=== PATIENT | male | born 1980 | race Caucasian/White ===

== ENCOUNTER 2017-07-14 09:41 | Emergency (ER) | payer OTHER ==
[~2017-07-14 09:41] MED LIST: Z.0.NO CURRENT MEDS
[2017-07-14 09:43] VITALS: BP 172/111; PULSE 87; RESP 20; TEMP 98.3; O2SAT 99
[2017-07-14 10:37] LABS: BILIRUBIN, URINE NEG (NEG); BLOOD, URINE SMALL (NEG); GLUCOSE,URINE NEG (NEG); KETONE, URINE NEG (NEG); NITRITE,URINE NEG (NEG); URINE LEUKOCYTE ESTERASE NEG (NEG)
[2017-07-14 10:38] LABS: URINE COLOR YELLOW (YELLW/STRAW)
[2017-07-14 10:41] LABS: SQUAMOUS EPITHELIAL CELL URINE 0-5 /hpf (0-5); WBC, URINE 0-2 /hpf (0-5)
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
[2017-07-14 12:13] LABS: AUTOMATED NEUTROPHIL # 5.8 TH/MM3 (1.8-7.7); BASOPHIL % 0.3 % (0.0-2.0); EOSINOPHIL # 0.1 TH/MM3 (0-0.4); EOSINOPHIL % 0.9 % (0.0-4.0); HEMATOCRIT 45.6 % (39.0-51.0); HEMOGLOBIN 14.2 GM/DL (13.0-17.0); LYMPH % 19.9 % (9.0-44.0); LYMPHOCYTE # 1.6 TH/MM3 (1.0-4.8); MEAN CELL VOLUME 80.1 FL (80.0-100.0); MEAN CORPUSCULAR HGB CONC 31.2 % (32.0-36.0); MEAN PLATELET VOLUME 8.6 FL (7.0-11.0); MONO % 7.5 % (0.0-8.0); MONOCYTE # 0.6 TH/MM3 (0-0.9); NEUT % 71.4 % (16.0-70.0); PLATELET COUNT 270 TH/MM3 (150-450); RED CELL DISTRIBUTION WIDTH 13.4 % (11.6-17.2); WHITE BLOOD COUNT 8.1 TH/MM3 (4.0-11.0)
[2017-07-14 12:29] LABS: BICARBONATE 27.7 MEQ/L (21.0-32.0)
[2017-07-14 12:33] LABS: CREATININE 0.97 MG/DL (0.60-1.30)
[2017-07-14] MEDS ORDERED: IOHEXOL 350 MG/ML 10 ML VIAL (for RAD DIAG) IVCONTRAST ONE (13:04)
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
[2017-07-14] MEDS ORDERED: LISI-515 PO (13:52)
[2017-07-14 14:06] VITALS: BP 155/95
== END 2017-07-14 14:15 | disposition home or self-care (01) ==
LOC: PHED 09:41
DX: N28.89 Other specified disorders of kidney and ureter (principal)
CPT/HCPCS: 74177; 80048; 81001; 85025; 99284; Q9967

== ENCOUNTER 2017-07-21 08:18 | Day surgery (SDC) | payer OTHER ==
[~2017-07-21] VITALS: Ht 188 cm; Wt 127.0 kg
[2017-07-21] VITALS (9 sets, daily range): BP systolic 94–147; BP diastolic 67–102; PULSE 60–105; RESP 20; TEMP 97.7–98.2; O2SAT 93–98
[~2017-07-21 08:18] MED LIST changes: +LISI-515 PO; -Z.0.NO CURRENT MEDS
[2017-07-21] MEDS ORDERED: GELATIN 12 MM/7 MM FOAM ONE (08:19)
[2017-07-21] MEDS ORDERED: CYCL10TA PO (08:50)
[2017-07-21] MEDS ORDERED: SODIUM CHLORIDE 2 ML FLUSH BID IV FLUSH SCH (09:00)
[2017-07-21] MEDS ORDERED: SODIUM CHLOR 0.9% 1000 ML IV SCH (09:00)
[2017-07-21] MEDS ORDERED: SODIUM CHLORIDE 2 ML FLUSH PRN IV FLUSH (09:00)
[2017-07-21 09:21] LABS: INTERNATIONAL NORMALIZED RATIO 1.1 RATIO; PROTHROMBIN TIME - PATIENT 10.7 SEC (9.8-11.6)
[2017-07-21] MEDS ORDERED: LIDOCAINE HCL 1% 20 ML VIAL ONE (10:28)
[2017-07-21] MEDS ORDERED: MIDAZOLAM HCL 2 MG/2 ML VIAL ONE ×2 (11:01→11:27)
[2017-07-21] MEDS ORDERED: THROMBIN (TOPICAL) 5,000 UNIT VIAL ONE (11:28)
--- NOTE | 2017-07-21 11:44 | PD.RAD ---
Post CT Procedure Prog Note Pre Procedure Diagnosis: (1) Left renal mass Post Procedure Diagnosis: (1) Left renal mass Procedure Date: Jul 21, 2017 Supervising Radiologist: Kenyon Singh JR Anesthesia: Conscious Sedation Plan of Activity Patient to Unit: ROPU Patient Condition: Good See PACS Report for procedural detail/treatment Biopsy Imaging Guidance: CT Side: Left Biopsy Procedure: Kidney Specimen: Core Biopsy Findings: 3 core samples of large left upper pole renal mass performed. Good samples noted. Gelfoam/thrombin utilized. Post CT images show no significant hemorrhage. Jr. Francisco,Kenyon Yu MD Jul 21, 2017 11:44
[2017-07-21 13:07] LABS: AUTOMATED NEUTROPHIL # 5.6 TH/MM3 (1.8-7.7); BASOPHIL % 0.2 % (0.0-2.0); EOSINOPHIL # 0.2 TH/MM3 (0-0.4); EOSINOPHIL % 1.9 % (0.0-4.0); HEMATOCRIT 41.1 % (39.0-51.0); HEMOGLOBIN 14.1 GM/DL (13.0-17.0); LYMPH % 18.5 % (9.0-44.0); LYMPHOCYTE # 1.5 TH/MM3 (1.0-4.8); MEAN CELL VOLUME 79.5 FL (80.0-100.0); MEAN CORPUSCULAR HEMOGLOBIN 27.3 PG (27.0-34.0); MEAN CORPUSCULAR HGB CONC 34.4 % (32.0-36.0); MONO % 8.2 % (0.0-8.0); MONOCYTE # 0.6 TH/MM3 (0-0.9); NEUT % 71.2 % (16.0-70.0); PLATELET COUNT 236 TH/MM3 (150-450); RED BLOOD COUNT 5.17 MIL/MM3 (4.50-5.90); RED CELL DISTRIBUTION WIDTH 14.4 % (11.6-17.2); WHITE BLOOD COUNT 7.9 TH/MM3 (4.0-11.0)
[2017-07-21 14:09] LABS: AUTOMATED NEUTROPHIL # 6.4 TH/MM3 (1.8-7.7); BASOPHIL % 0.4 % (0.0-2.0); EOSINOPHIL # 0.1 TH/MM3 (0-0.4); EOSINOPHIL % 1.7 % (0.0-4.0); HEMOGLOBIN 13.9 GM/DL (13.0-17.0); LYMPH % 17.4 % (9.0-44.0); LYMPHOCYTE # 1.5 TH/MM3 (1.0-4.8); MEAN CELL VOLUME 79.8 FL (80.0-100.0); MEAN CORPUSCULAR HEMOGLOBIN 26.4 PG (27.0-34.0); MEAN PLATELET VOLUME 8.3 FL (7.0-11.0); MONO % 6.3 % (0.0-8.0); MONOCYTE # 0.5 TH/MM3 (0-0.9); NEUT % 74.2 % (16.0-70.0); PLATELET COUNT 234 TH/MM3 (150-450); RED BLOOD COUNT 5.26 MIL/MM3 (4.50-5.90); RED CELL DISTRIBUTION WIDTH 14.2 % (11.6-17.2); WHITE BLOOD COUNT 8.6 TH/MM3 (4.0-11.0)
--- NOTE | 2017-07-21 14:16 | RADRPT ---
EXAM DATE/TIME: 07/21/2017 11:16 [facility] COMPARISON: No previous studies available for comparison. INDICATIONS : Left renal mass. SEDATION TIME: 20 minutes BIOPSY SITE: Left kidney mass MEDICATION(S): 1.) 6 mg midazolam (Versed) IV 2.) 300 mcg fentanyl (Sublimaze) IV DEVICE(S): 1.) 17 gauge coaxial 15cm 2.) 18 gauge Biopsy gun 20cm MEDICAL HISTORY : None. SURGICAL HISTORY : None. ENCOUNTER: Initial ACUITY: 1 day PAIN SCORE: 0/10 LOCATION: Left flank A total of three core specimen(s) were obtained and sent to the laboratory for pathologic evaluation. PROCEDURE: 1. CT guided renal biopsy. 2. Conscious sedation with continuous EKG and oximetry monitoring. Prior to the procedure informed consent was obtained. Any appropriate prior imaging studies were rev iewed. Using automated exposure control and adjustment of the mA and/or kV according to patient size, radiat ion dose was kept as low as reasonably achievable to obtain optimal diagnostic quality images. DICOM format image data is available electronically for review and comparison. The site was prepped in a sterile fashion. Full sterile technique was used, including cap, mask, juan francisco rile gloves and gown and a large sterile sheet. Hand hygiene and 2% chlorhexidine and/or betadine/al cohol prep was utilized per protocol for cutaneous antisepsis. The skin and subcutaneous tissues wer e infiltrated with local anesthetic solution. With CT guidance the large left upper pole renal mass was localized. Biopsy was performed using the p rescribed needle as above. Adequate hemostasis was obtained utilizing Gelfoam and thrombin. Follow-up CT scan reveals no hemorrhage. The patient tolerated the procedure well and there were no complications. The patient was returned to the Radiology Outpatient Unit in stable condition. CONCLUSION: Uncomplicated CT guided core biopsy of a left upper pole renal mass. Kenyon Singh Jr., MD on July 21, 2017 at 14:12 Board Certified Radiologist. This report was verified electronically.
== END 2017-07-21 16:05 | disposition home or self-care (01) ==
LOC: HRAD 08:18 → HRIP 08:22 → HRAD 16:05
PROVIDERS: ATTEND Urology
DX: C64.9 Malignant neoplasm of unspecified kidney, except renal pelvis (principal); I10 Essential (primary) hypertension
CPT/HCPCS: 50200; 77012; 85025; 85610; 85730; 88305; J2250; J3010; J7030; 88307

== ENCOUNTER 2017-08-12 06:16 | Inpatient (IN) | payer OTHER ==
[~2017-08-12] VITALS: Ht 188 cm; Wt 128.1 kg
[~2017-08-12 06:16] MED LIST changes: -LISI-515 PO; +LISI10TA3 PO; +TRAM50 PO
[2017-08-12] MEDS ORDERED: INSULIN HUMAN REGULAR 1,000 UNITS/10 ML VIAL SQ PRN (07:00)
[2017-08-12] MEDS ORDERED: SODIUM CHLORID 0.9% 500 ML IV PRN (07:00)
[2017-08-12] MEDS ORDERED: METOPROLOL TARTRATE 25 MG TAB PO PRN (07:00)
[2017-08-12] MEDS ORDERED: POVIDONE IODINE 5% (ANTISEPSIS KIT) 4 APPLICATIONS EACH NARE PRN (07:00)
[2017-08-12] MEDS ORDERED: LACTATED RINGER'S 1000 ML IV PRN (07:00)
[2017-08-12] MEDS ORDERED: ceFAZolin 2 GM PREMIX 50 ML IV SCH (07:00)
[2017-08-12] MEDS ORDERED: CHLORHEXIDINE GLUCONATE 2 % 1 PACK (2 CLOTHS) TOPICAL PRN (07:00)
[2017-08-12] MEDS ORDERED: MORPHINE SULFATE 4 MG/ML INJ ONE (07:01)
[2017-08-12] MEDS ORDERED: ACETAMINOPHEN 1000 MG/100 ML 100 ML IV ONE (07:01)
[2017-08-12] MEDS ORDERED: LORazepam 2 MG/ML VIAL ONE (07:51)
[2017-08-12] MEDS ORDERED: MIDAZOLAM HCL 2 MG/2 ML VIAL ONE (07:54)
[2017-08-12] MEDS ORDERED: fentaNYL CITRATE 250 MCG/5 ML AMP ONE (10:16)
[2017-08-12] MEDS ORDERED: SODIUM CHLORIDE 0.9% 20 ML VIAL IV ONE (12:00)
[2017-08-12] MEDS ORDERED: PHENYLEPHRINE HCL 10 MG/ML VIAL IV ONE (12:00)
[2017-08-12] MEDS ORDERED: VECURONIUM BROMIDE 20 MG VIAL IV ONE (12:00)
[2017-08-12] MEDS ORDERED: ePHEDrine/NS 25 MG/5 ML SYRINGE IV ONE (12:00)
[2017-08-12] MEDS ORDERED: LACTATED RINGER'S 1000 ML INJ 1,000 ML IV ONE (12:00)
[2017-08-12] MEDS ORDERED: ROCURONIUM INJ 50 MG/5 ML SYRINGE IV PUSH ONE (12:00)
[2017-08-12] MEDS ORDERED: ESMOLOL HCL 100 MG/10 ML VIAL IV ONE (12:00)
[2017-08-12] MEDS ORDERED: ONDANSETRON HCL 4 MG/2 ML VIAL IV ONE (12:00)
[2017-08-12] MEDS ORDERED: DEXAMETHASONE SOD PHOS 4 MG/ML VIAL IV ONE (12:00)
[2017-08-12] MEDS ORDERED: STERILE WATER FOR INJECTION 20 ML VIAL IV ONE (12:00)
[2017-08-12] MEDS ORDERED: PROPOFOL 200 MG/20 ML AMP IV ONE (12:00)
[2017-08-12] MEDS ORDERED: ceFAZolin INJ 1,000 MG VIAL IV ONE ×2 (12:00→12:01)
[2017-08-12] MEDS ORDERED: LIDOCAINE HCL 1% PF 5 ML SYRINGE OTHER ONE (12:00)
[2017-08-12] MEDS ORDERED: PHENYLEPH/NS 1000 MCG/10 ML SYR IV ONE (12:00)
[2017-08-12] MEDS ORDERED: SUGAMMADEX SODIUM 200 MG/2 ML VIAL IV PUSH ONE (14:20)
--- NOTE | 2017-08-12 14:51 | PD.OP ---
Operative Report Date of Surgery: Aug 12, 2017 Preoperative Diagnosis: (1) Renal cell carcinoma of left kidney Postoperative Diagnosis: (1) Renal cell carcinoma of left kidney Procedure: Robot-assisted laparoscopic left radical nephrectomy Anesthesia: General Surgeon: Mauro Steward Staff Developer(s): Da Prescott Operation and Findings: Indication for procedure: Case of a pleasant 36-year-old gentleman with an 8 cm left renal mass biopsy proven to be renal cell carcinoma who presents today to undergo a robot-assisted laparoscopic left radical nephrectomy. Operative procedure in detail: Patient was brought to the operating room suite and placed supine on the OR table. He was then placed under general anesthesia. He was then repositioned in the right lateral recumbent position and the table flexed to separate the bony pelvis from the thorax. He was then held in this position utilizing a beanbag. All pressure points were adequately padded. He was then prepped and draped in normal sterile fashion. After the timeout was taken, I proceeded with creation of a pneumoperitoneum utilizing the Veress needle in standard fashion. The abdomen was inflated to 15 mmHg pressure. The camera port was then placed in the midline utilizing the visual obturator. The 3 robotic arm ports were then placed under direct vision and the cosmetic sales assistant port placed inferior to the camera port in the midline again under direct vision. With all ports in place the robot was docked. At this point in time I repositioned myself over at the da María Elena console and Dr. Prescott remained at the bedside to senior it assistant. I next proceeded with mobilization of the left colon. The splenic flexure was freed and the colon mobilized in a medial direction to expose the retroperitoneum. I then proceeded to mobilize the inferior aspect of the left kidney down to the psoas muscle and the ureter was identified and tracked upwards towards the hilum. The hilar vessels were identified and subsequently divided and ligated with the surgical stapling device. I then proceeded with further mobilization of the kidney using sharp and blunt dissection. Particular care was taken at the level of the spleen to prevent any inadvertent injury to the spleen or to the tail of the pancreas. The left adrenal gland was identified and very medial location and since this tumor was lateral decision was made to leave the adrenal glands intact. After the kidney was fully mobilized and was placed in a Endo Catch specimen bag. The pneumoperitoneum was dropped down to 5 mmHg and careful inspection was made for active bleeding. No bleeding was noted. Total blood loss was 100 cc. The robot was then undocked and I repositioned myself at the bedside after I re-scrubbed. The camera port and cosmetic sales assistant port were connected by cutting with a 15 blade in between the port sites to create a single incision measuring approximately 6 cm in length. The incision was extended down to the underlying fascia which was sharply opened up. The specimen was then removed in the Endo Catch specimen bag and sent off to pathology. This midline incision was then closed utilizing #1 PDS for the deep fascia. Subcutaneous tissue was reapproximated with 4-0 Vicryl and the skin edges reapproximated in subcuticular fashion utilizing 4-0 undyed Vicryl. The remaining 3 robotic arm port sites were closed in subcuticular fashion in similar fashion. Sterile dressings were placed at all wound sites. The patient tolerated the procedure without complications and was transferred to the PACU in satisfactory condition. Mauro Steward MD Aug 12, 2017 14:51
[2017-08-12] MEDS ORDERED: KETOROLAC TROMETHAMINE 60 MG/2 ML (IM) VIAL IM PRN (15:15)
[2017-08-12] MEDS ORDERED: SODIUM CHLORIDE 0.9% FLUSH 10 ML FLUSH IV FLUSH PRN (15:15)
[2017-08-12] MEDS ORDERED: HYDROmorphone HCL PF 2 MG/ML VIAL IV PUSH PRN ×2 (15:15→18:00)
[2017-08-12] MEDS: LACTATED RINGER'S 1000 ML INJ 1,000 ML IV SCH ×2 (15:50→22:53)
[2017-08-12] MEDS ORDERED: DO NOT ADM ANY ANTICOAGULANT DRUGS PRN (16:00)
[2017-08-12] MEDS ORDERED: Post-op Orders (for Pharmacy) XX ONE (16:00)
[2017-08-12] MEDS ORDERED: *morphine SULFATE 4 MG/ML PERIprocedure ONLY ONE ×2 (16:08→16:43)
[2017-08-12] MEDS: HYDROmorphone HCL PF 2 MG/ML VIAL IV PUSH PRN ×3 (16:14→17:59)
[2017-08-12] MEDS ORDERED: HYDROmorphone HCL PCA 6 MG/30 ML IV ONE (16:52)
[2017-08-12] MEDS: HYDROmorphone HCL PCA 6 MG/30 ML IV SCH (17:02)
[2017-08-12] MEDS ORDERED: HYDROmorphone HCL PF 2 MG/ML VIAL IV PUSH ONE (18:00)
[2017-08-12] MEDS ORDERED: SODIUM CHLORID 0.9% 500 ML INJ 500 ML IV ONE (18:00)
[2017-08-12] MEDS ORDERED: NALOXONE HCL 0.4 MG/ML AMP IV PUSH PRN (19:00)
[2017-08-12 20:31] VITALS: BP 131/68; PULSE 104; RESP 17; TEMP 97.3; O2SAT 97
[2017-08-12] MEDS: PCA - TOTAL MG DILAUDID DELIVERED PER SHIFT SCH (22:00)
[2017-08-12] MEDS: ceFAZolin 2 GM PREMIX 50 ML IV SCH (22:52)
[2017-08-12] MEDS: SODIUM CHLORIDE 0.9% FLUSH 10 ML FLUSH IV FLUSH SCH (22:56)
[2017-08-13 00:23] VITALS: BP 110/70; PULSE 92; RESP 18; TEMP 97.4; O2SAT 96
[2017-08-13] MEDS: HYDROmorphone HCL PCA 6 MG/30 ML IV SCH ×3 (03:55→22:53)
[2017-08-13 05:17] VITALS: BP 103/65; PULSE 90; RESP 18; TEMP 97.9; O2SAT 97
[2017-08-13] MEDS: PCA - TOTAL MG DILAUDID DELIVERED PER SHIFT SCH ×3 (06:00→22:00)
[2017-08-13] MEDS: ceFAZolin 2 GM PREMIX 50 ML IV SCH ×2 (06:04→13:35)
[2017-08-13] MEDS: LACTATED RINGER'S 1000 ML INJ 1,000 ML IV SCH ×3 (06:13→22:00)
[2017-08-13] MEDS: ONDANSETRON HCL 4 MG/2 ML VIAL IV PUSH PRN ×3 (07:10→21:58)
[2017-08-13 08:00] VITALS: BP 111/70; PULSE 81; RESP 18; TEMP 97.6; O2SAT 94
[2017-08-13] MEDS ORDERED: traMADol HCL 50 MG TAB PO PRN (08:00)
[2017-08-13] MEDS: SODIUM CHLORIDE 0.9% FLUSH 10 ML FLUSH IV FLUSH SCH ×2 (09:00→21:58)
--- NOTE | 2017-08-13 09:41 | EKG ---
Date Performed: 08/12/2017 Time Performed: 07:18:50 PTAGE: 36 years EKG: Sinus rhythm INDETERMINATE AXIS INFERIOR MYOCARDIAL INFARCTION , PROBABLY OLD ABNORMAL ECG PREVIOUS TRACING : 08/19/2012 21.30 Since prior tracing, sinus rhythm has replaced sinus rhythm with bigeminal PVCs. Possible inferior infarct pattern is new. DOCTOR: Vicente Blackman Interpretating Date/Time 08/13/2017 09:42:33
[2017-08-13] MEDS: LISINOPRIL 10 MG TAB PO SCH (09:53)
[2017-08-13 10:19] LABS: HEMATOCRIT 37.4 % (39.0-51.0); HEMOGLOBIN 12.9 GM/DL (13.0-17.0)
[2017-08-13 10:51] LABS: BICARBONATE 29.1 MEQ/L (21.0-32.0); CALCIUM 8.3 MG/DL (8.5-10.1); CREATININE 1.6 MG/DL (0.60-1.30)
[2017-08-13 12:00] VITALS: BP 115/71; PULSE 98; RESP 18; TEMP 98.8; O2SAT 92
--- NOTE | 2017-08-13 12:00 | HHI.PR ---
Subjective Patient symptoms today Postoperative day #1 Pain management with [employer] Voiding well Has been out of bed Tolerating regular diet Objective Vital Signs Vital Signs Date Time Temp Pulse Resp B/P (MAP) Pulse Ox O2 Delivery O2 Flow Rate FiO2 08/13/17 08:00 97.6 81 18 111/70 (84) 94 08/13/17 06:00 18 08/13/17 05:17 97.9 90 18 103/65 (78) 97 08/13/17 03:55 18 08/13/17 00:23 97.4 92 18 110/70 (83) 96 08/12/17 22:00 18 08/12/17 20:31 97.3 104 17 131/68 (89) 97 08/12/17 18:15 98.6 112 13 120/64 (82) 94 Nasal Cannula 2 08/12/17 18:00 112 13 129/67 (87) 96 Nasal Cannula 2 08/12/17 17:45 115 13 103/70 (81) 98 Nasal Cannula 3 08/12/17 17:30 113 13 108/69 (82) 96 Nasal Cannula 3 08/12/17 17:15 111 13 104/70 (81) 94 Nasal Cannula 3 08/12/17 17:02 19 08/12/17 17:00 113 14 121/85 (97) 96 Nasal Cannula 3 08/12/17 16:45 117 13 131/92 (105) 98 Nasal Cannula 4 08/12/17 16:30 118 13 113/74 (87) 95 Nasal Cannula 4 08/12/17 16:15 120 14 123/83 (96) 96 Nasal Cannula 4 08/12/17 16:00 116 21 135/83 (100) 97 Nasal Cannula 4 08/12/17 15:45 113 22 130/78 (95) 96 Simple Mask 5 123/67 (85) 08/12/17 15:30 105 24 123/75 (91) 94 Simple Mask 6 127/73 (91) 08/12/17 15:19 98.3 116 16 109/73 (85) 91 Simple Mask 6 Intake & Output 08/13/17 08/13/17 07:00 19:00 Intake Total 1784 ml Output Total 800 ml Balance 984 ml IV Total 1784 ml Output Urine Total 800 ml Result Diagram: 2/14/18 0924 2/14/18 0924 Other Results Abdomen soft, nondistended, nontender Wound sites clean and dry Extremities well perfused, nontender Medications and IVs Current Medications Medications (Trade) Dose Ordered Sig/Anisa Route Start Time Stop Time Status Last Admin Lactated Ringer's 1,000 ml @ 30 mls/hr Q24H PRN IV 08/12/17 07:00 08/15/17 06:59 08/12/17 07:00 Sodium Chloride 500 ml @ 30 mls/hr [id number] PRN IV 08/12/17 07:00 08/15/17 06:59 (Lopressor) 25 mg CLINICAL EDUCATION ASSISTANT PRN PO 08/12/17 07:00 08/15/17 06:59 (Betadine 5% Antisepsis Kit) 1 applic CLINICAL EDUCATION ASSISTANT PRN EACH NARE 08/12/17 07:00 08/15/17 06:59 08/12/17 07:00 (Chlorhexidine 2% Cloth) 3 pack CLINICAL EDUCATION ASSISTANT PRN TOPICAL 08/12/17 07:00 08/15/17 06:59 08/12/17 06:30 (NovoLIN R INJ) See Protocol Table ... CLINICAL EDUCATION ASSISTANT PRN SQ 08/12/17 07:00 08/15/17 06:59 Cefazolin Sodium/ Dextrose 50 ml @ 100 mls/hr CLINICAL EDUCATION ASSISTANT IV 08/12/17 07:00 08/15/17 06:59 08/12/17 07:50 Lactated Ringer's 1,000 ml @ 125 mls/hr Q8H IV 08/12/17 15:15 08/13/17 06:13 (NS Flush) 2 ml UNSCH PRN IV FLUSH 08/12/17 15:15 (NS Flush) 2 ml BID IV FLUSH 08/12/17 21:00 08/12/17 22:56 (Dilaudid Pf Inj) 1 mg Q2H PRN IV PUSH 08/12/17 15:15 Future Hold 08/12/17 17:59 (Dilaudid Pf Inj) 2 mg Q2H PRN IV PUSH 08/12/17 15:15 Future Hold (Zofran Inj) 4 mg Q6H PRN IV PUSH 08/12/17 15:15 08/13/17 07:10 (Ultram) 50 mg Q6H PRN PO 08/13/17 08:00 Future Hold (Prinivil) 10 mg DAILY PO 08/13/17 09:00 08/13/17 09:53 Miscellaneous Information ALL NURSING DEPARTME... UNSCH PRN .XX 08/12/17 16:00 08/13/17 15:59 (Dilaudid [employer] Inj) 6 mg UNSCH IV 08/12/17 19:00 08/13/17 03:55 [employer] Dosage Infused (Pha) 1 Q8HR .XX 08/12/17 22:00 08/13/17 06:00 (Narcan Inj) 0.4 mg UNSCH PRN IV PUSH 08/12/17 19:00 Cefazolin Sodium/ Dextrose 50 ml @ 100 mls/hr Q8H IV 08/12/17 23:00 08/13/17 15:29 08/13/17 06:04 (Percocet 7.5-325 Mg) 1 tab Q6H PRN PO 08/13/17 12:00 UNV (Colace) 100 mg BID PO 08/13/17 12:00 UNV Assessment and Plan Assessment and Plan Urologic impression: #1 Status post robot-assisted laparoscopic right radical nephrectomy #2 Uneventful postop course Plan: #1 Attempt to wean off [employer] #2 Encourage out of bed #3 Continue with regular diet #4 Plan discharge home in giovanyMauro Green MD Aug 13, 2017 12:00
[2017-08-13] MEDS: DOCUSATE SODIUM 100 MG CAP PO SCH ×2 (15:13→21:59)
[2017-08-13 16:00] VITALS: BP 144/98; PULSE 96; RESP 18; TEMP 98.6; O2SAT 92
[2017-08-13 20:00] VITALS: BP 136/87; PULSE 91; RESP 18; TEMP 96.4; O2SAT 98
[2017-08-13] MEDS: oxyCODONE/ACETAMINOPHEN 7.5 MG/325 MG TAB PO PRN (23:04)
[2017-08-14] VITALS: BP 142/89; PULSE 87; RESP 18; TEMP 96.9; O2SAT 96
[2017-08-14] MEDS: PCA - TOTAL MG DILAUDID DELIVERED PER SHIFT SCH ×2 (06:00→12:04)
[2017-08-14] MEDS: ONDANSETRON HCL 4 MG/2 ML VIAL IV PUSH PRN (06:30)
[2017-08-14] MEDS: LACTATED RINGER'S 1000 ML INJ 1,000 ML IV SCH ×2 (06:34→13:41)
[2017-08-14] MEDS: oxyCODONE/ACETAMINOPHEN 7.5 MG/325 MG TAB PO PRN ×2 (06:45→12:06)
[2017-08-14] MEDS: HYDROmorphone HCL PCA 6 MG/30 ML IV SCH (07:46)
[2017-08-14 08:00] VITALS: BP 133/85; PULSE 78; RESP 18; TEMP 97.7; O2SAT 91
[2017-08-14] MEDS: DOCUSATE SODIUM 100 MG CAP PO SCH (08:56)
[2017-08-14] MEDS: LISINOPRIL 10 MG TAB PO SCH (08:57)
[2017-08-14] MEDS: SODIUM CHLORIDE 0.9% FLUSH 10 ML FLUSH IV FLUSH SCH (08:57)
--- NOTE | 2017-08-14 11:36 | HHI.DS ---
Discharge Summary Admission Date Aug 12, 2017 at 06:16 Discharge Date: Aug 14, 2017 Admitting Diagnosis Left renal cell carcinoma (1) Renal cell carcinoma of left kidney Diagnosis: Principal ICD Codes: C64.2 - Malignant neoplasm of left kidney, except renal pelvis Procedures Robot-assisted laparoscopic left radical nephrectomy Brief History Case of a 36-year-old gentleman who was recently discovered to have a 8 cm mass involving the left kidney biopsy proven to be renal cell carcinoma. Patient was admitted on August 12 to undergo a robot-assisted laparoscopic left radical nephrectomy. Please refer to admission history and physical for additional history and pertinent physical findings. CBC/BMP: 08/13/17 0924 08/13/17 0924 Significant Findings Laboratory Tests Test 08/13/17 09:24 Hemoglobin 12.9 GM/DL (13.0-17.0) Hematocrit 37.4 % (39.0-51.0) Blood Urea Nitrogen 19 MG/DL (7-18) Creatinine 1.60 MG/DL (0.60-1.30) Calcium Level 8.3 MG/DL (8.5-10.1) Estimat Glomerular Filtration Rate 49 ML/MIN (>89) PE at Discharge Abdomen soft, nondistended, nontender Incision sites clean and dry Extremities well perfused, nontender Hospital Course Patient was admitted on August 12 and underwent a formation procedures without complications. Postoperative course was as expected. By postop day 1 the patient was started on regular diet and ambulated. By postop day #2 pain was well managed with oral meds, patient ambulating well and tolerating oral intake. A decision was thus made to discharge the patient home. Pt Condition on Discharge: Good Discharge Disposition: Discharge Home Discharge Instructions DIET: Follow Instructions for: As Tolerated, No Restrictions Activities you can perform: See Additionl Instruction Activities to avoid: Strenuous Activity Additional Activity Instructio: No strenuous activity or heavy lifting until further advised. Additional Information Office follow-up early next month as previously arranged. Mauro Steward MD Aug 14, 2017 11:36
[2017-08-14] MEDS ORDERED: OXYC1TAB35 PO (11:40)
[2017-08-14] MEDS ORDERED: DOCU1CAP39 PO (11:40)
[2017-08-14 12:00] VITALS: BP 143/93; PULSE 83; RESP 18; TEMP 97.9; O2SAT 94
[2017-08-14 12:04] VITALS: RESP 16
== END 2017-08-14 14:55 | disposition home or self-care (01) | DRG 658 ==
LOC: HSDI 06:16 → INTOOBSV 06:16 → OBSVTOIN 06:16 → N07B 18:33
PROVIDERS: ADMIT Urology; ATTEND Urology
PROC: 8E0W4CZ Robotic Assisted Procedure of Trunk Region, Percutaneous Endoscopic Approach (ICD-10-PCS; 2017-08-12)
PROC: 0TT14ZZ Resection of Left Kidney, Percutaneous Endoscopic Approach (ICD-10-PCS; principal; 2017-08-12 08:14)
DX: C64.2 Malignant neoplasm of left kidney, except renal pelvis (principal); I10 Essential (primary) hypertension
CPT/HCPCS: 80048; 85014; 85018; 86850; 86900; 86901; 86920; 88307; 93005; 94150; J0131; J0690; J1100; J1170; J1885; J2060; J2250; J2270; J2370; J2405; J3010; J7040; J7120